=== PATIENT | female | born 1955 | race Caucasian/White ===

== ENCOUNTER 2022-10-11 11:08 | Outpatient (CLI) | payer MEDICARE, SELFPAY | END 2022-10-11 11:09 | disposition home or self-care (01) | LOC: NFLDREF 11:09 | PROVIDERS: PCP Family Medicine; Visit Provider Obstetrics & Gynecology | DX: R31.9 Hematuria, unspecified (principal); R31.29 Other microscopic hematuria | CPT/HCPCS: 87086 ==